=== PATIENT | female | born 1985 | race Two or more races ===

== ENCOUNTER 2024-04-15 10:10 | Emergency (ER) | payer OTHER ==
[~2024-04-15] VITALS: Ht 154.9 cm; Wt 54.4 kg
[2024-04-15 11:48] LABS: HEMATOCRIT 38.3 % (36.0-45.00); HEMOGLOBIN 13.5 g/dL (12.0-15.00); MEAN CELL VOLUME 86.5 fL (80.00-100.00); MEAN CORPUSCULAR HEMOGLOBIN 30.5 pg (27.00-32.0); MEAN CORPUSCULAR HGB CONC 35.2 g/dl (32.0-36.0); PLATELET COUNT 170 K/uL (150-450); RED BLOOD COUNT 4.42 M/uL (4.00-6.00); RED CELL DISTRIBUTION WIDTH 12.7 % (11.5-14.5)
== END 2024-04-15 12:33 | disposition home or self-care (01) ==
LOC: ER 10:11
PROVIDERS: General Practice
DX: R05.9 Cough, unspecified (principal); Z20.822 Contact with and (suspected) exposure to COVID-19; R07.89 Other chest pain